=== PATIENT | female | born 1980 | race African-American/Black ===

== ENCOUNTER 2020-09-10 13:28 | Emergency (ER) | payer MEDICAID, OTHER ==
[~2020-09-10] VITALS: Ht 172.7 cm; Wt 90.9 kg
[2020-09-10 13:59] VITALS: BP 131/82
[2020-09-10] MEDS ORDERED: METH4TAB2 PO (15:04)
[2020-09-10] MEDS ORDERED: TRAM50TA PO (15:04)
--- NOTE | 2020-09-10 15:04 | PHYS DOC ---
Past Medical History Past Medical History: No Pertinent History Past Surgical History: No Surgical History Smoking Status: Never Smoker Alcohol Use: None Drug Use: None General Adult EDM: Chief Complaint: BACK PAIN - NO INJURY HPI: HPI: Patient is a 40 year old female who presents with chronic low back pain that is sharp shooting pain down the back of her legs bilaterally over the last month. She states is gotten worse yesterday. She drives a forklift at work. She states that she has had an injury in the past and was under Workmen's Comp. and she had an MRI and they had told her that she has a tear and some bulging disks in her lower back and she was going to need surgery. She told them that she was going to wait on the surgery. She states that she tried to see her primary care doctor today because she is out of her tramadol. She states that it was a long wait. She states she does have some leg to follow-up with. She denies loss of bowel bladder, saddle paresthesias, focal weakness, numbness or tingling, urinary symptoms, new injury. Review of Systems: Review of Systems: Constitutional: Denies fever or chills. [] Eyes: Denies change in visual acuity. [] HENT: Denies nasal congestion or sore throat. [] Respiratory: Denies cough or shortness of breath. [] Cardiovascular: Denies chest pain or edema. [] GI: Denies abdominal pain, nausea, vomiting, bloody stools or diarrhea. [] : Denies dysuria. [] Musculoskeletal: +Bilateral lower back pain. + Patient has bilateral sharp shooting pain. Denies or joint pain. [] Integument: Denies rash. [] Neurologic: Denies headache, focal weakness or sensory changes. [] Endocrine: Denies polyuria or polydipsia. [] Lymphatic: Denies swollen glands. [] Psychiatric: Denies depression or anxiety. [] Heart Score: C/O Chest Pain: No Risk Factors: Risk Factors: DM, Current or recent (<one month) smoker, HTN, HLP, family history of CAD, obesity. Risk Scores: Score 0 - 3: 2.5% MACE over next 6 weeks - Discharge Home Score 4 - 6: 20.3% MACE over next 6 weeks - Admit for Clinical Observation Score 7 - 10: 72.7% MACE over next 6 weeks - Early Invasive Strategies Allergies: Allergies: Allergies Coded Allergies Type Severity Reaction Last Updated Verified No Known Drug Allergies 02/06/14 No Physical Exam: PE: Constitutional: Well developed, well nourished, no acute distress, non-toxic appearance. [] HENT: Normocephalic, atraumatic, bilateral external ears normal, oropharynx moist, no oral exudates, nose normal. [] Eyes: PERRLA, EOMI, conjunctiva normal, no discharge. [] Neck: Normal range of motion, no tenderness, supple, no stridor. [] Cardiovascular:Heart rate regular rhythm, no murmur [] Lungs & Thorax: Bilateral breath sounds clear to auscultation [] Abdomen: Bowel sounds normal, soft, no tenderness, no masses, no pulsatile masses. [] Skin: Warm, dry, no erythema, no rash. [] Back: No tenderness, no CVA tenderness. [] Extremities: No tenderness, no cyanosis, no clubbing, ROM intact, no edema. [] Neurologic: Alert and oriented X 3, normal motor function, normal sensory function, no focal deficits noted. [] Psychologic: Affect normal, judgement normal, mood normal. Normal physical exam [] Current Patient Data: Vital Signs: Vital Signs Date Time Temp Pulse Resp B/P (MAP) Pulse Ox O2 Delivery O2 Flow Rate FiO2 09/10/20 13:59 98.0 79 18 131/82 (98) 99 Room Air 98.0 EKG: EKG: [] Radiology/Procedures: Radiology/Procedures: [] Course & Med Decision Making: Course & Med Decision Making Pertinent Labs and Imaging studies reviewed. (See chart for details) See HPI. Alert and oriented x4. Ambulatory with a steady slow gait. No focal weakness. No motor weakness. Full sensations. No unilateral leg swelling. No tenderness to her lower back. Full strengths. Pedal pulses strong and present. Skin pink warm and dry. Alert and oriented x4. Speaks in full clear sentences. No focal weaknesses. No deformity to the spine or swelling or bruising that is seen. Patient again denies any current new injury. [] Dragon Disclaimer: Dragon Disclaimer: This electronic medical record was generated, in whole or in part, using a voice recognition dictation system. Departure Departure Impression: Primary Impression: Back pain Qualified Codes: M54.42 - Lumbago with sciatica, left side; M54.41 - Lumbago with sciatica, right side Disposition: 01 HOME / SELF CARE / HOMELESS Condition: STABLE Referrals: NO PCP (PCP) LEYDA QUEVEDO MD Patient Instructions: Low Back Strain with [facility], Sciatica with [facility] Additional Instructions: Follow-up with your primary care provider. I have also referred you to a neurosurgeon you can call make an appointment if you would like. Take medication as prescribed and with food. Also try heating pads. Rest. Scripts Tramadol Hcl (TRAMADOL HCL) 50 Mg Tablet 50 MG PO Q6HRS PRN for PAIN, #12 TAB Prov: MARIA L DORMAN APRN 09/10/20 Methylprednisolone (MEDROL) 4 Mg Tab.ds.pk 1 PKG PO UD, #1 PKG Prov: MARIA L DORMAN APRN 09/10/20 MARIA L DORMAN APRN Sep 10, 2020 15:04
== END 2020-09-10 15:26 | disposition home or self-care (01) ==
LOC: ER 13:28
DX: M54.42 Lumbago with sciatica, left side (principal); M54.41 Lumbago with sciatica, right side; G89.29 Other chronic pain
CPT/HCPCS: 99283